=== PATIENT | female | born 1955 | race Caucasian/White ===

== ENCOUNTER → 2018-02-25 09:57 | Outpatient (CLI) | payer BC, SELFPAY ==
[2018-02-25 12:59] LABS: T4 (Thyroxine) 5.8 ug/dl (4.7-13.3); Thyroid Stimulating Hormone 0.91 uIU/ml (0.358-3.740); Triiodothryronine (T3) Uptake 34 % (31-39)
[2018-02-26 14:04] LABS: Ceruloplasmin 27.1 mg/dL (19.0-39.0)
== END ==
PROVIDERS: Visit Provider Specialist
DX: G93.5 Compression of brain (principal); R25.1 Tremor, unspecified; R51 Headache
CPT/HCPCS: 36415; 82390; 84436; 84443; 84479

== ENCOUNTER → 2018-04-15 12:37 | Outpatient (CLI) | payer BC, SELFPAY ==
[2018-04-16 09:43] LABS: Vitamin B12 601 pg/mL (232-1245)
== END ==
PROVIDERS: Visit Provider Specialist
DX: R25.1 Tremor, unspecified (principal)
CPT/HCPCS: 36415; 82607

== ENCOUNTER → 2018-04-19 07:39 | Outpatient (CLI) | payer BC, SELFPAY ==
--- NOTE | 2018-04-19 07:41 | AS_ITS ---
Renal Arterial Duplex Indications: 405.91 Unspecified renovascular hypertension. IMPRESSIONS 1. Less than 60% stenosis involving the right renal artery 2. Less than 60% stenosis involving the left renal artery 3. GB polyp seen. History: Risk factors: Current tobacco use. Hypertension. Diabetes mellitus. Dyslipidemia. Coronary artery disease. Complete renal arterial duplex. Duplex scan and Doppler flow study including spectral analysis, color and meza scale imaging. Height: Height: 167.6cm. Height: 66in. Weight: Weight: 78kg. Weight: 171.6lb. Body mass index: BMI: 27.8kg/m^2. Body surface area: BSA: 1.92m^2. Location: Vascular laboratory. Patient status: Outpatient. Tables: Arterial flow: + +-------+--------+ Location V sys V ed + +-------+--------+ Right renal - proximal 187cm/s 44.9cm/s + +-------+--------+ Right renal - mid 205cm/s 33.4cm/s + +-------+--------+ Right renal - distal 151cm/s 20.4cm/s + +-------+--------+ Left renal - proximal 244cm/s 36.4cm/s + +-------+--------+ Left renal - mid 282cm/s 50.7cm/s + +-------+--------+ Left renal - distal 256cm/s 39.1cm/s + +-------+--------+ Right renal-origin 244cm/s 44.3cm/s + +-------+--------+ Left renal-origin 278cm/s 35.7cm/s + +-------+--------+ Aorta-prox 179cm/s -------- + +-------+--------+ Renal anatomy: + +------+------+ Left Right + +------+------+ Long axis 12.5cm 12.5cm + +------+------+ Short axis 7.5cm 7.5cm + +------+------+ Cortical thickness 1.5cm 1.4cm + +------+------+ Velocity ratios: + +-----+ V sys + +-----+ Right renal/aortic 1.4 + +-----+ Left renal/aortic 1.6 + +-----+ (Report amended ) Electronically signed by: Esteban Bazan [id number]
== END ==
PROVIDERS: PCP Family Medicine; Visit Provider Internal Medicine
DX: I11.9 Hypertensive heart disease without heart failure (principal); I25.118 Atherosclerotic heart disease of native coronary artery with other forms of angina pectoris; I65.23 Occlusion and stenosis of bilateral carotid arteries; R42 Dizziness and giddiness
CPT/HCPCS: 93976

== ENCOUNTER → 2019-06-23 09:59 | Outpatient (CLI) | payer BC, SELFPAY ==
[2019-06-23 10:22] LABS: Basophils % 0.3 % (0.1-2.0); Eosinophils # 0.1 K/mm3 (0.0-0.4); Eosinophils % 2.1 % (0.1-12.0); Hematocrit 41.7 % (37.0-47.0); Hemoglobin 13.3 g/dL (12.2-16.2); Lymphocytes # 1.1 K/mm3 (0.7-4.5); Lymphocytes % 16.8 % (10-50); Mean Corpuscular HGB Conc 31.8 g/dL (31.8-35.4); Mean Corpuscular Hemoglobin 29.8 pg (27.0-31.2); Mean Corpuscular Volume 93.6 fl (81-99); Mean Platelet Volume 7.4 fl (7.4-10.4); Monocytes # 0.3 K/mm3 (0.1-1.0); Monocytes % 5.1 % (1.7-9.3); Neutrophils # 4.7 K/mm3 (1.8-7.8); Neutrophils % 75.7 % (37.0-80.0); Platelet Count 275 K/mm3 (142-424); Red Blood Count 4.46 M/mm3 (4.20-5.40); Red Cell Distribution Width 13.7 % (11.5-17.5); White Blood Count 6.3 K/mm3 (4.8-10.8)
[2019-06-23 11:30] LABS: Alanine Aminotransferase 21 U/L (12-78); Albumin Level 4.6 g/dl (3.5-5.0); Albumin/Globulin Ratio 1.8 (1.1-1.8); Alkaline Phosphatase 100 U/L (38-126); Anion Gap 10.8 mEq/L (5-15); Aspartate Amino Transferase 29 U/L (14-36); Blood Urea Nitrogen 33 mg/dl (7-17); Calcium 9.9 mg/dl (8.4-10.2); Carbon Dioxide 26 mmol/L (22.0-30.0); Chloride 103 mmol/L (98-107); Estimated Glomerular Filt Rate 85 ml/min (>60); GFR (African American) 102 ML/MIN (>60); Globulin 2.6 g/dL (1.3-3.2); Glucose 193 mg/dl (74-100); Potassium 4.8 mmoL/L (3.5-5.1); Sodium 135 mmol/L (136-145); Total Protein,Serum 7.2 g/dl (6.3-8.2)
[2019-06-23 11:31] LABS: Bilirubin,Total < 0.1 mg/dl (0.2-1.3)
== END ==
PROVIDERS: Visit Provider Specialist
DX: G62.9 Polyneuropathy, unspecified (principal); R25.1 Tremor, unspecified
CPT/HCPCS: 36415; 80053; 85025

== ENCOUNTER → 2019-08-07 14:08 | Outpatient (CLI) | payer BC, SELFPAY ==
--- NOTE | 2019-08-07 14:10 | CA_ITS ---
APPROVED REPORT [employer]: CT Laterality: Bilateral Indications: GAVIN Doppler Spectral Velocity Analysis ECA (R) 179.90/21.20 cm/s ECA (L) 158.80/16.70 cm/s dICA (R) 104.10/29.60 cm/s dICA (L) 129.40/38.50 cm/s Amena (R) 122.30/37.60 cm/s Amena (L) 118.70/33.10 cm/s pICA (R) 154.00/29.40 cm/s pICA (L) 128.30/24.60 cm/s dCCA (R) 105.90/22.20 cm/s dCCA (L) 112.90/23.50 cm/s pCCA (R) 122.30/18.30 cm/s pCCA (L) 158.70/24.70 cm/s Vert (R) 102.10/24.10 cm/s Vert (L) 48.70/19.80 cm/s ICA/CCA 1.50 ICA/CCA 1.20 Conclusion Duplex evaluation demonstrates stenosis of the right proximal internal carotid artery in the range of 50-69% with PSV =140 cm/sec, EDV <100 cm/sec, and IC/CC Ratio <4.0. Duplex evaluation demonstrates stenosis of the left proximal internal carotid artery in the range of 20-49% with PSV <140 cm/sec, EDV <100 cm/sec, and IC/CC Ratio <4.0, upper end off scale. Duplex evaluation demonstrates antegrade flow of the bilateral Vertebral Arteries. Electronically signed by : Esteban Bazan MD 08/08/2019 11:35:44
== END ==
PROVIDERS: PCP Family Medicine; Visit Provider Nurse Practitioner Family
DX: I25.10 Atherosclerotic heart disease of native coronary artery without angina pectoris (principal); I65.23 Occlusion and stenosis of bilateral carotid arteries; E11.9 Type 2 diabetes mellitus without complications; E78.2 Mixed hyperlipidemia; I10 Essential (primary) hypertension; I11.9 Hypertensive heart disease without heart failure; R94.31 Abnormal electrocardiogram [ECG] [EKG]
CPT/HCPCS: 93306; 93880

== ENCOUNTER → 2020-06-07 12:18 | Outpatient (CLI) | payer BC, SELFPAY ==
[2020-06-07 13:04] LABS: Blood Urea Nitrogen 19 mg/dl (7-17); Estimated Glomerular Filt Rate 84 ml/min (>60); GFR (African American) 102 ML/MIN (>60)
== END ==
PROVIDERS: PCP Family Medicine; Visit Provider Specialist
DX: M54.5 Low back pain (principal); R20.0 Anesthesia of skin; R20.2 Paresthesia of skin; R94.130 Abnormal response to nerve stimulation, unspecified; M79.604 Pain in right leg; M79.605 Pain in left leg; M79.671 Pain in right foot; M79.672 Pain in left foot
CPT/HCPCS: 36415; 82565; 84520

== ENCOUNTER → 2020-07-15 06:36 | Outpatient (CLI) | payer BC, SELFPAY ==
--- NOTE | 2020-07-15 06:38 | CT_ITS ---
PROCEDURE: CT LUMBAR SPINE WO CON CLINICAL HISTORY: chronic lower back pain, radiculopathy Hx of back surgery Lbp radiates into legs COMPARISON: No exams were available for comparison TECHNIQUE: Axial images obtained with sagittal and coronal reformats. All CT scans at the facility use one or more dose reduction, viz: automated exposure control, ma/kV adjustment per patient size (including targeted exams where dose is matched to indication, i.e. head), or iterative reconstruction technique. FINDINGS: There is normal alignment. No acute fracture or dislocation. No lytic or blastic change. T11-T12: Small anterior endplate osteophytes. T12-L1: Small right lateral endplate osteophytes. L1-L2: Small anterior osteophytes with mild bulging of the disc anteriorly. L2-L3: Concentric bulging disc with facet and ligamentum hypertrophic change with bilateral lateral recess and foraminal narrowing. L3-L4: Severe facet hypertrophic change and ligamentum hypertrophy with mild bulging disc with bilateral lateral recess narrowing greater on the right. 2 mm anterolisthesis of L3. There is some mild impingement upon the exiting L3 nerve root on the left from hypertrophy of the superior facet on the left at L4. Bilateral foraminal narrowing noted. There is a paraspinal stimulator device present along the right facets at L3-L4 L4-5: Severe facet and ligamentum hypertrophic change with bilateral lateral recess and foraminal narrowing. Minimal bulging disc with minimal broad-based left paracentral and foraminal disc protrusion/disc osteophyte complex laterally causing left lateral recess and foraminal narrowing. L5-S1: Prior left-sided laminectomy at L5 with severe facet and ligamentum hypertrophic change with a small broad-based left paracentral foraminal lateral disc osteophyte complex. The disc space at L5-S1 appears fused. Prior laminectomy at L5-S1 centrally and on the left. IMPRESSION: Abnormal CT of the lumbar spine with multilevel lumbar spondylosis and postsurgical changes. Please see above for detailed description at each level. Dictated by: Esteban Bazan MD 07/16/2020 10:14 Esteban Bazan MD in [place] 07/16/2020 10:14
== END ==
PROVIDERS: PCP Family Medicine; Visit Provider Specialist
DX: M54.16 Radiculopathy, lumbar region (principal); G89.29 Other chronic pain
CPT/HCPCS: 72131

== ENCOUNTER → 2020-08-23 12:57 | Outpatient (POV) | payer BC, SELFPAY ==
[2020-08-23 13:28] VITALS: BP 198/83; PULSE 70; RESP 18; O2SAT 96; BMI 33.3
--- NOTE | 2020-08-23 14:35 | HMH.PMCON ---
Assessment and Plan (1) Degenerative joint disease (DJD) of lumbar spine Status: Chronic Category: Medical Code(s): M47.816 - Spondylosis without myelopathy or radiculopathy, lumbar region (2) Radiculopathy, lumbar region Status: Chronic Category: Medical Code(s): M54.16 - Radiculopathy, lumbar region - Assessment and plan all Dx Assessment and Plan for all problems:: Patient I discussed her options today. Given her symptoms, she would likely benefit from intrathecal therapy versus spinal cord stimulation. Given her marijuana use, however, spinal cord stimulation would probably be most appropriate for the patient. Patient would like to review the information given to her today and contact the clinic in the future if she decides to proceed with any type of therapy in the clinic. She has been advised to contact the clinic if she has any questions. Patient has been instructed to contact the clinic with any concerns before the next appointment. Dr. Obrien has reviewed this note and agrees with this plan of care. This note was dictated using voice recognition software and make contain errors or omissions. HPI - Data of Consult Patient: new to practice Consult date: 08/23/20 Requesting Physician: Latesha Almanza APRN Primary Care Provider: Mike West - Consult Narrative Reason for consult: Low back pain History of present illness: Ms. Mcmanus is a 64 year old female presents today for consultation for chronic low back pain. She was referred to us by Dr. Carney for chronic low back pain. Patient is being treated for degenerative disc disease lumbar spine with lumbar radiculopathy symptoms. Patient rates her pain a 7 or an 8 out of 10. She has tried and failed multiple conservative therapies for chronic pain. She has tried oral medications which she does not like taking. As result she has stopped the medication. She is currently on Lyrica 150 mg 1 tablet p.o. twice daily, however, she is not happy with taking medicine. She does have a history of surgery to her lumbar spine in 2003 which was a failed surgery. She did have to have a bone stimulator placed at that time. She needed an MRI at a later date, and as a result, the bone stimulator was removed, however, she does still have a lead in place. She has been reluctant to consider a neurosurgical referral from Dr. Carney. She has tried injective therapy in her lumbar spine along with continued home stretching program. She does have an MRI from July 16, 2020. She is here today to discuss possible intrathecal therapy versus spinal cord stimulation. She does have a history of marijuana use daily. She is unsure if she wants an intrathecal pain pump or spinal cord stimulator. She is here today to discuss her options. Patient's pain is worse with standing or walking and does not improve much with sitting. She says the pain is constant dull in nature and does radiate into her lower extremities. She does have numbness and tingling in her lower extremities as well. She does have neck pain with radiation into upper extremities as well. CC: Latesha Almanza APRN [facility] History Medical History: Reports:: Anxiety, Coronary Artery Disease, Diabetes Mellitus Type 2, Hyperlipidemia, Hypertension *Have you ever received a pneumonia vaccine?: Yes *Have you received a flu vaccine this season?: Yes Other Medical History: Reports: Arthritis, Cataracts, Fibromyalgia Laterality Cases: Bilateral: Tonsillectomy Other Surgeries: Yes: Cardiac Catheterization, , Dilation and Curettage, Hysterectomy-Partial Amputation: No Fractures: No - *Social History Smoking Status: Current some day smoker Tobacco Type: cigarettes Alcohol Intake: never Substance Use Type: marijuana *Occupational Status:: retired Housing: house Household Members: none *Travel in the last 8 weeks: None - Psychiatric History Pschychiatric History:: Reports:: Anxiety Family Hx:: Cancer, Diabetes, Stroke
== END ==
PROVIDERS: PCP Family Medicine; Visit Provider Clinical Nurse Specialist Family Health
DX: M47.896 Other spondylosis, lumbar region (principal); M54.16 Radiculopathy, lumbar region
CPT/HCPCS: 99202; G0463

== ENCOUNTER 2023-06-18 14:05 | Outpatient (CLI) | payer BC, SELFPAY ==
[2023-06-18 14:46] LABS: Basophils # 0.1 K/mm3 (0-0.2); Basophils % 0.6 % (0.1-2.0); Eosinophils # 0.1 K/mm3 (0.0-0.4); Eosinophils % 1.5 % (0.1-12.0); Hematocrit 46.9 % (37.0-47.0); Lymphocytes # 1.9 K/mm3 (0.7-4.5); Lymphocytes % 22.2 % (10-50); Mean Corpuscular HGB Conc 32.1 g/dL (31.8-35.4); Mean Corpuscular Hemoglobin 31.5 pg (27.0-31.2); Mean Corpuscular Volume 98.4 fl (81-99); Mean Platelet Volume 8.4 fl (7.4-10.4); Monocytes # 0.4 K/mm3 (0.1-1.0); Monocytes % 4.5 % (1.7-9.3); Neutrophils # 6.1 K/mm3 (1.8-7.8); Neutrophils % 71.3 % (37.0-80.0); Platelet Count 180 K/mm3 (142-424); Red Blood Count 4.77 M/mm3 (4.20-5.40); Red Cell Distribution Width 14.8 % (11.5-17.5); White Blood Count 8.5 K/mm3 (4.8-10.8)
[2023-06-18 15:09] LABS: Alanine Aminotransferase 22 U/L (12-78); Albumin Level 4.2 g/dl (3.5-5.0); Albumin/Globulin Ratio 1.7 (1.1-1.8); Alkaline Phosphatase 117 U/L (38-126); Anion Gap 13.8 mEq/L (5-15); Aspartate Amino Transferase 29 U/L (14-36); Bilirubin,Total 0.8 mg/dl (0.2-1.3); Blood Urea Nitrogen 20 mg/dl (7-17); Calcium 9.5 mg/dl (8.4-10.2); Carbon Dioxide 26 mmol/L (22.0-30.0); Chloride 106 mmol/L (98-107); Estimated Glomerular Filt Rate 83 ml/min (>60); GFR (African American) 101 ML/MIN (>60); Globulin 2.5 g/dL (1.3-3.2); Glucose 167 mg/dl (74-100); Potassium 3.8 mmoL/L (3.5-5.1); Sodium 142 mmol/L (136-145); Total Protein,Serum 6.7 g/dl (6.3-8.2)
[2023-06-18 15:58] LABS: Hemoglobin A1C 5.8 % (4.0-6.0)
[2023-06-18 16:15] LABS: Vitamin B12 497 pg/mL (239-931)
[2023-06-18 16:16] LABS: Folate > 20.00 ng/mL
== END 2023-06-18 23:59 | disposition home or self-care (01) ==
LOC: LAB 14:06
PROVIDERS: PCP Family Medicine; Visit Provider Specialist
DX: R42 Dizziness and giddiness (principal); E83.10 Disorder of iron metabolism, unspecified; G62.9 Polyneuropathy, unspecified; E11.69 Type 2 diabetes mellitus with other specified complication; E66.9 Obesity, unspecified; Z79.4 Long term (current) use of insulin
CPT/HCPCS: 36415; 80053; 82607; 82746; 83036; 85025

== ENCOUNTER 2023-07-16 12:41 | Outpatient (CLI) | payer MEDICARE, MEDICAID, SELFPAY ==
--- NOTE | 2023-07-16 12:41 | CT_ITS ---
FINAL REPORT TECHNIQUE: Multiple axial CT sections were performed from the foramen magnum to the vertex. Coronal reformatted images were also obtained. Precontrast and postcontrast injection images were obtained. This study was performed with technique to keep radiation doses as low as reasonably achievable, (ALARA). Individualized dose reduction techniques using automated exposure control or adjustment of mA and/or kV according to the patient size were employed. CLINICAL HISTORY: Recurrent vertigo FINDINGS: There is right periventricular focus of encephalomalacia consistent with prior infarct. The ventricles are normal in size. There is no evidence of hemorrhage. No masses are identified. No extra-axial fluid collection is seen. The sinuses are normal. No osseous abnormality is seen on the bone window images. Postcontrast images demonstrate no abnormal enhancement. IMPRESSION: No acute intracranial abnormality. Reviewed, Interpreted and Dictated by Roney Hathaway III, MD Transcribed by Crystal Anaya Authenticated and [facility]
[2023-07-16] MEDS: IOPAMIDOL-370 (76%);100ML BOTTLE 100 ML IV (13:38)
[2023-07-16] MEDS: SODIUM CHLORIDE 0.9% 10ML SYR (RAD ONLY) 10 ML IV (13:38)
== END 2023-07-16 23:59 | disposition home or self-care (01) ==
LOC: RAD 12:41
PROVIDERS: PCP Family Medicine; Visit Provider Specialist
DX: R42 Dizziness and giddiness (principal)
CPT/HCPCS: 70470; Q9967